=== PATIENT | male | born 1950 | race Caucasian/White ===

== ENCOUNTER 2016-12-21 19:22 | Inpatient (IN) | payer MEDICARE ==
[~2016-12-21] VITALS: Ht 190.5 cm; Wt 97.0 kg
[~2016-12-21 19:22] MED LIST: ALLEGRA 180MG180 MG PO; ALPRAZOLAM0.5 MG PO; AMBIEN 10MG10 MG PO; AMBIEN CR12.5 MG PO; AMBIEN5 MG PO; AMOXICILLIN 8751 TAB PO; ASPIRIN 32325 MG/TAB PO; ASPIRIN E.C.325 MG PO; ATIVAN 0.50.5 MG/TAB PO; BUSPAR 30MG30 MG/TAB PO; BUSPAR DIVIDOSE15 MG PO; BUSPAR10 MG PO; CEPHALEXIN500 M1 PO; CETIRIZINE; CIPRO 500MG TA500 MG PO; CLARITIN 1010 MG/TAB PO; DIAZEPAM10 MG PO; DOCUSATE100 MG PO; FISH OIL1 IU PO; FLECAINIDE ACE100 MG PO; FLOMAX; FLUOXETINE; LIOTHYRONINE S25 MCG PO; LOMOTIL 0.025 M1 TAB PO; LOVAZA1 GM PO; METHYLPHENIDATE PO; MIRALAX17 GM/DOSE PO; MIRTAZAPINE7.5 MG PO; MULTIPLE VITAMI1 CAP PO; PERCOCET 325 MG1 TA2 PO; POLYETHYLE17 GM/DOSE PO; PRISTIQ 50 MG T50 MG PO; PRISTIQ50 M1 PO; PROSCAR; SEROQUEL50 MG PO; SINGULAIR; TAMBOCOR 1100 MG/TAB PO; TYLENOL 325MG325 MG PO; UNABLE; VESICARE10 MG PO; VESICARE5 MG PO; VIIBRYD40 MG PO; VYTORIN; VYTORIN 10 MG-21 TAB PO; XANAX 0.5MG0.5 MG PO; ZANTAC 150 EFF150 M1 PO; ZANTAC 150MG T150 MG PO; ZYPREXA 5MG5 MG PO; ZYPREXA10 MG PO; ZYPREXA2.5 MG PO; ZYRTEC 10MG10 MG PO; [UNRECOGNIZED DRUG - OTHER]; [UNRECOGNIZED DRUG - OTHER] PO; citrucel
[2016-12-21 20:21] LABS: ADJUSTED CALCIUM 8.3 mg/dL (8.4-10.2); ALBUMIN 4.1 gm/dL (3.5-5.0); BILIRUBIN,TOTAL 0.6 mg/dL (0.0-1.0); CALCIUM 8.4 mg/dL (8.4-10.2); CREATININE, serum 1.02 mg/dL (0.66-1.25); TOTAL PROTEIN 6.7 gm/dL (6.4-8.2)
[2016-12-21 20:27] LABS: BASO % 0.4 % (0.0-2.0); EOS # 0.2 (0.0-0.7); GRAN # 4.2 (1.4-6.5); GRAN % 52.4 % (42.2-75.2); HEMATOCRIT 42.8 % (42.0-52.0); HEMOGLOBIN 14.3 g/dl (13.5-18.0); LYMPH # 2.9 (1.2-3.4); LYMPH % 35.9 % (20.0-51.0); MEAN CELL VOLUME 89 fl (80.0-100.0); MEAN CORPUSCULAR HEMOGLOBIN 30 pg (27.0-31.0); MEAN CORPUSCULAR HGB CONC 33 g/dl (33.0-37.0); MEAN PLATELET VOLUME 8.7 fl (7.4-10.4); MONO # 0.7 (0.1-0.6); MONO % 8.9 % (1.7-9.3); PLATELET COUNT 184 K/mm3 (130-400); RED BLOOD COUNT 4.83 M/mm3 (4.20-5.60); REDCELL DISTRIBUTION WIDTH-CV 13.2 % (11.5-14.5)
[2016-12-21 20:36] LABS: INR 1.1 (0.8-3.0)
[2016-12-21 20:39] LABS: PARTIAL THROMBOPLASTIN TIME 27.4 SECONDS (26.0-37.0)
[2016-12-21 23:07] VITALS: BP 118/69; PULSE 75; TEMP 98.3
[2016-12-22] VITALS (11 sets, daily range): BP systolic 116–142; BP diastolic 58–84; PULSE 69–114; TEMP 97.3–98.8
[2016-12-22 00:30] LABS: MAGNESIUM 2.3 mg/dL (1.6-2.3)
[2016-12-22 08:28] LABS: CALCIUM 7.7 mg/dL (8.4-10.2); CREATININE, serum 0.82 mg/dL (0.66-1.25); POTASSIUM 3.6 mmol/L (3.4-5.0)
[2016-12-22] MEDS ORDERED: BELSOMRA10 MG PO (16:00)
[2016-12-22] MEDS ORDERED: ATARAX50 MG PO (16:04)
[2016-12-22] MEDS ORDERED: QUESTRAN4 GM/9 GM PO (16:05)
[2016-12-22 18:41] LABS: PH 5 (5-8); SQUAMOUS EPITHELIAL None Seen /hpf; URINE APPEARANCE Clear; URINE BACTERIA None Seen /hpf; URINE BILIRUBIN Negative (NEGATIVE); URINE BLOOD Negative (NEGATIVE); URINE COLOR Yellow; URINE GLUCOSE Negative (NEGATIVE); URINE KETONE Trace (NEGATIVE); URINE RBC 0-2 /hpf; URINE UROBILINOGEN Negative (NEGATIVE); URINE WBC 0-2 /hpf
[2016-12-22 18:48] LABS: AMPHETAMINE URINE NEGATIVE; BARBITURATES URINE NEGATIVE; BENZODIAZEPINES URINE POSITIVE; BUPRENORPHINE URINE NEGATIVE; METHADONE URINE NEGATIVE; OPIATES URINE NEGATIVE; OXYCODONE URINE NEGATIVE; PHENCYCLIDINE URINE NEGATIVE; PROPOXYPHENE URINE NEGATIVE; THC CANNABINOIDS URINE NEGATIVE
[2016-12-23] VITALS (11 sets, daily range): BP systolic 111–141; BP diastolic 63–81; PULSE 51–79; TEMP 97.5–98.8
[2016-12-24 02:19] VITALS: BP 129/76; PULSE 72; TEMP 98.6
[2016-12-24 03:53] VITALS: BP 122/68; PULSE 50; TEMP 98.7
[2016-12-24 06:08] VITALS: BP 130/81; PULSE 54; TEMP 98.5
[2016-12-24 08:50] VITALS: BP 128/81; PULSE 74; TEMP 98.2
[2016-12-24 10:55] VITALS: BP 124/81; PULSE 63; TEMP 98.3
[2016-12-24 13:37] VITALS: BP 121/66; PULSE 80; TEMP 97.6
== END 2016-12-24 15:07 | disposition home or self-care (01) | DRG 897 ==
LOC: COL.ER 19:22 → MEDICAL 22:06
PROVIDERS: Emergency Medicine; Nurse Practitioner Family
DX: F10.229 Alcohol dependence with intoxication, unspecified (principal); G10 Huntington's disease; E87.2 Acidosis; F10.239 Alcohol dependence with withdrawal, unspecified; Y90.8 Blood alcohol level of 240 mg/100 ml or more; R53.81 Other malaise; R53.1 Weakness; I48.0 Paroxysmal atrial fibrillation; Z91.81 History of falling
CPT/HCPCS: OP; 90791-AI; 99223-AI; 99232-AI; G0378; G8978-GP; G8979-GP; J2060; J3411; J3475; J7030

== ENCOUNTER → 2017-01-02 | Outpatient (CLI) | payer MEDICARE ==
[~2017-01-02] MED LIST changes: +ATARAX50 MG PO; +BELSOMRA10 MG PO; +QUESTRAN4 GM/9 GM PO
== END ==
LOC: BHSO 11:00
DX: F10.20 Alcohol dependence, uncomplicated (principal)

== ENCOUNTER → 2017-01-31 | Outpatient (CLI) | payer MEDICARE | LOC: BHSO 10:15 | DX: F10.20 Alcohol dependence, uncomplicated (principal) ==

== ENCOUNTER → 2017-04-04 | Outpatient (CLI) | payer MEDICARE | LOC: BHSO 10:41 | DX: F33.42 Major depressive disorder, recurrent, in full remission (principal) ==

== ENCOUNTER → 2017-07-25 | Outpatient (CLI) | payer MEDICARE | LOC: BHSO 10:31 | DX: F41.1 Generalized anxiety disorder (principal) ==

== ENCOUNTER → 2018-04-10 | Outpatient (CLI) | payer MEDICARE | LOC: BHSO 11:26 | DX: F41.1 Generalized anxiety disorder (principal) | CPT/HCPCS: G0463 ==

== ENCOUNTER 2018-04-14 19:10 | Observation (INO) | payer MEDICARE ==
[2005-05-06 03:53] VITALS: BP 117/81
[2018-04-14 19:45] LABS: BASO % 0.3 % (0.0-2.0); EOS # 0.3 (0.0-0.7); EOS % 2.7 % (0-4.0); GRAN # 6.1 (1.4-6.5); GRAN % 65.9 % (42.2-75.2); HEMATOCRIT 43.2 % (42.0-52.0); HEMOGLOBIN 14.5 g/dl (13.5-18.0); LYMPH # 2.3 (1.2-3.4); LYMPH % 24.7 % (20.0-51.0); MEAN CELL VOLUME 90 fl (80.0-100.0); MEAN CORPUSCULAR HEMOGLOBIN 30 pg (27.0-31.0); MEAN CORPUSCULAR HGB CONC 34 g/dl (33.0-37.0); MEAN PLATELET VOLUME 9.1 fl (7.4-10.4); MONO # 0.6 (0.1-0.6); MONO % 6.3 % (1.7-9.3); PLATELET COUNT 158 K/mm3 (130-400); RED BLOOD COUNT 4.78 M/mm3 (4.20-5.60); REDCELL DISTRIBUTION WIDTH-CV 13.5 % (11.5-14.5)
[2018-04-14 19:55] LABS: ALANINE AMINOTRANSFERASE 31 U/L (21-72); ALCOHOL(ethanol),MEDICAL 254 mg/dL; ALKALINE PHOSPHATASE 76 U/L (50-136); ANION GAP 11 mmol/L (7-16); AST,SGOT 22 U/L (15-37); BILIRUBIN,TOTAL 0.2 mg/dL (0.0-1.0); BLOOD UREA NITROGEN 10 mg/dL (9-20); CALCIUM 8.8 mg/dL (8.4-10.2); CARBON DIOXIDE 25 mmol/L (22-30); CHLORIDE 108 mmol/L (98-107); GLUCOSE 92 mg/dL (74-106); POTASSIUM 3.6 mmol/L (3.4-5.0); SODIUM 144 mmol/L (137-145)
[2018-04-14 20:08] LABS: TROPONIN-I < 0.012 ng/mL (0.000-0.034)
[2018-04-14] MEDS ORDERED: MELATONIN1 MG PO (20:08)
[2018-04-14] MEDS ORDERED: MYRBETR25MG PO (20:09)
[2018-04-14] MEDS ORDERED: TOPAMAX50 MG PO (20:09)
[2018-04-15] VITALS (7 sets, daily range): BP systolic 108–135; BP diastolic 61–72; PULSE 70–99; TEMP 97.9–99.9
[2018-04-15 03:11] LABS: PROTHROMBIN TIME 10.9 SECONDS (9.7-12.8)
[2018-04-15 03:14] LABS: PARTIAL THROMBOPLASTIN TIME 33.6 SECONDS (26.0-37.0)
[2018-04-15 03:38] LABS: COLLECTION METHOD CLEAN CATCH
[2018-04-15 03:56] LABS: PH 7 (5-8); SQUAMOUS EPITHELIAL None Seen /hpf; URINE APPEARANCE Clear; URINE BACTERIA None Seen /hpf; URINE BILIRUBIN Negative (NEGATIVE); URINE BLOOD Negative (NEGATIVE); URINE COLOR Colorless; URINE GLUCOSE Negative (NEGATIVE); URINE KETONE Negative (NEGATIVE); URINE LEUKOCYTE ESTERASE Negative (NEGATIVE); URINE NITRATE Negative (NEGATIVE); URINE PROTEIN(semi-quant) Negative (NEGATIVE); URINE RBC 0-2 /hpf; URINE UROBILINOGEN Negative (NEGATIVE)
[2018-04-15 04:06] LABS: TRICYCLIC ANTIDEPRESS URINE NEGATIVE
[2018-04-15 07:03] LABS: BASO % 0.3 % (0.0-2.0); EOS # 0.1 (0.0-0.7); EOS % 0.6 % (0-4.0); GRAN # 9.8 (1.4-6.5); GRAN % 83.5 % (42.2-75.2); HEMATOCRIT 43.4 % (42.0-52.0); HEMOGLOBIN 13.9 g/dl (13.5-18.0); LYMPH # 1.1 (1.2-3.4); LYMPH % 9.4 % (20.0-51.0); MEAN CELL VOLUME 92 fl (80.0-100.0); MEAN CORPUSCULAR HEMOGLOBIN 30 pg (27.0-31.0); MEAN CORPUSCULAR HGB CONC 32 g/dl (33.0-37.0); MEAN PLATELET VOLUME 9.2 fl (7.4-10.4); MONO # 0.7 (0.1-0.6); MONO % 5.9 % (1.7-9.3); PLATELET COUNT 161 K/mm3 (130-400); REDCELL DISTRIBUTION WIDTH-CV 13.8 % (11.5-14.5)
[2018-04-15 07:10] LABS: CREATININE, serum 0.74 mg/dL (0.66-1.25); POTASSIUM 3.5 mmol/L (3.4-5.0)
[2018-04-16 04:00] VITALS: BP 102/57; PULSE 54; TEMP 97.8
[2018-04-16 06:34] VITALS: BP 112/72; PULSE 60; TEMP 98
[2018-04-16 07:21] VITALS: BP 114/68; PULSE 63; TEMP 98.4
[2018-04-16] MEDS ORDERED: PRISTIQ 50 MG T50 MG PO ×2 (09:26→09:58)
[2018-04-16] MEDS ORDERED: ZYPREXA15 MG PO (09:27)
[2018-04-16] MEDS ORDERED: THIAMINE 1100 MG/TAB PO (09:28)
[2018-04-16] MEDS ORDERED: FOLIC ACID 11 MG/TA1 PO (09:28)
[2018-04-16] MEDS ORDERED: MULTI VITAMINS1 TAB PO (09:29)
== END 2018-04-16 13:52 | disposition home or self-care (01) ==
LOC: COL.ER 19:10 → MEDICAL 04-15 01:45
PROVIDERS: Emergency Medicine; Internal Medicine; Nurse Practitioner Family
DX: R53.1 Weakness (principal); R41.81 Age-related cognitive decline; F10.129 Alcohol abuse with intoxication, unspecified; S01.01XA Laceration without foreign body of scalp, initial encounter; R33.9 Retention of urine, unspecified; R19.7 Diarrhea, unspecified; G25.5 Other chorea; I48.0 Paroxysmal atrial fibrillation; F32.9 Major depressive disorder, single episode, unspecified
CPT/HCPCS: G0378; G8978-GP; G8979-GP; G8987-GO; G8988-GO; J3411; J7030

== ENCOUNTER 2018-06-07 15:43 | Emergency (ER) | payer MEDICARE ==
[2005-05-06 03:53] VITALS: BP 117/81
[~2018-06-07] VITALS: Ht 185.4 cm; Wt 90.9 kg
[~2018-06-07 15:43] MED LIST changes: +FOLIC ACID 11 MG/TA1 PO; +MELATONIN1 MG PO; +MULTI VITAMINS1 TAB PO; +MYRBETR25MG PO; +THIAMINE 1100 MG/TAB PO; +TOPAMAX50 MG PO; +ZYPREXA15 MG PO
[2018-06-07 15:46] VITALS: TEMP 97.4
[2018-06-07] MEDS ORDERED: NORCO 325 MG-51 TAB PO (17:25)
[2018-06-07 18:10] VITALS: BP 130/89; PULSE 90
== END 2018-06-07 17:40 | disposition home or self-care (01) ==
LOC: COL.ER 15:43
DX: S42.252A Displaced fracture of greater tuberosity of left humerus, initial encounter for closed fracture (principal); S02.2XXA Fracture of nasal bones, initial encounter for closed fracture; G10 Huntington's disease; W19.XXXA Unspecified fall, initial encounter
CPT/HCPCS: J2060; J3010

== ENCOUNTER 2018-06-10 10:56 | Inpatient (IN) | payer MEDICARE ==
[~2018-06-10] VITALS: Ht 188 cm; Wt 89.5 kg
[~2018-06-10 10:56] MED LIST changes: +NORCO 325 MG-51 TAB PO
[2018-06-10 11:26] LABS: HEMATOCRIT 37.7 % (42.0-52.0); HEMOGLOBIN 12.3 g/dl (13.5-18.0); MEAN CELL VOLUME 91 fl (80.0-100.0); MEAN CORPUSCULAR HEMOGLOBIN 30 pg (27.0-31.0); MEAN CORPUSCULAR HGB CONC 33 g/dl (33.0-37.0); MEAN PLATELET VOLUME 9.6 fl (7.4-10.4); PLATELET COUNT 126 K/mm3 (130-400); RED BLOOD COUNT 4.16 M/mm3 (4.20-5.60); REDCELL DISTRIBUTION WIDTH-CV 12.9 % (11.5-14.5)
[2018-06-10 11:47] LABS: BAND 30 % (0-10); LYMPHOCYTE 6 % (20.0-51.0); METAMYELOCYTE 1 % (0-0); NEUTROPHILS 62 % (42.0-75.2); PLATELET ESTIMATE DECREASED (NORMAL)
[2018-06-10 11:48] LABS: TOXIC GRANULATION PRESENT
[2018-06-10 12:15] LABS: ALBUMIN 3.4 gm/dL (3.5-5.0); BILIRUBIN,TOTAL 0.9 mg/dL (0.0-1.0); CALCIUM 8.6 mg/dL (8.4-10.2); CREATININE, serum 0.9 mg/dL (0.66-1.25); POTASSIUM 3.4 mmol/L (3.4-5.0); TOTAL PROTEIN 6.6 gm/dL (6.4-8.2)
[2018-06-10 13:51] LABS: COLLECTION METHOD CLEAN CATCH
[2018-06-10 14:07] LABS: PH 7 (5-8); SQUAMOUS EPITHELIAL None Seen /hpf; URINE APPEARANCE Hazy; URINE BACTERIA None Seen /hpf; URINE BILIRUBIN Negative (NEGATIVE); URINE BLOOD Negative (NEGATIVE); URINE COLOR Yellow; URINE GLUCOSE Negative (NEGATIVE); URINE KETONE Negative (NEGATIVE); URINE LEUKOCYTE ESTERASE Negative (NEGATIVE); URINE NITRATE Negative (NEGATIVE); URINE PROTEIN(semi-quant) 2+ (NEGATIVE); URINE RBC 0-2 /hpf; URINE UROBILINOGEN Negative (NEGATIVE); URINE WBC 0-2 /hpf
[2018-06-10 15:42] VITALS: BP 115/62; PULSE 104; TEMP 101.6
[2018-06-10 18:15] VITALS: TEMP 99.1
[2018-06-10 20:05] VITALS: BP 108/59; PULSE 89; TEMP 99.6
[2018-06-11] VITALS (8 sets, daily range): BP systolic 88–148; BP diastolic 48–87; PULSE 83–104; TEMP 97.9–99.7
[2018-06-11 07:00] LABS: BASO % 0.3 % (0.0-2.0); EOS # 0.1 (0.0-0.7); EOS % 1.1 % (0-4.0); GRAN # 6.5 (1.4-6.5); GRAN % 87.2 % (42.2-75.2); HEMOGLOBIN 10.7 g/dl (13.5-18.0); LYMPH # 0.4 (1.2-3.4); LYMPH % 5.8 % (20.0-51.0); MEAN CELL VOLUME 90 fl (80.0-100.0); MEAN CORPUSCULAR HEMOGLOBIN 30 pg (27.0-31.0); MEAN CORPUSCULAR HGB CONC 33 g/dl (33.0-37.0); MEAN PLATELET VOLUME 9.4 fl (7.4-10.4); MONO # 0.4 (0.1-0.6); MONO % 5.3 % (1.7-9.3); PLATELET COUNT 129 K/mm3 (130-400); RED BLOOD COUNT 3.58 M/mm3 (4.20-5.60); REDCELL DISTRIBUTION WIDTH-CV 12.8 % (11.5-14.5)
[2018-06-11 07:01] LABS: HEMATOCRIT 32.3 % (42.0-52.0)
[2018-06-11 07:15] LABS: ALBUMIN 2.7 gm/dL (3.5-5.0); BILIRUBIN,TOTAL 0.7 mg/dL (0.0-1.0); CALCIUM 7.8 mg/dL (8.4-10.2); CREATININE, serum 0.75 mg/dL (0.66-1.25); TOTAL PROTEIN 5.7 gm/dL (6.4-8.2)
[2018-06-11 07:21] LABS: POTASSIUM 2.8 mmol/L (3.4-5.0)
[2018-06-12] VITALS (8 sets, daily range): BP systolic 83–111; BP diastolic 48–69; PULSE 77–100; TEMP 97.9–98.8
[2018-06-12 07:26] LABS: BASO % 0.1 % (0.0-2.0); EOS # 0.2 (0.0-0.7); EOS % 2.4 % (0-4.0); GRAN # 5.7 (1.4-6.5); GRAN % 79.9 % (42.2-75.2); LYMPH # 0.7 (1.2-3.4); LYMPH % 9.6 % (20.0-51.0); MEAN CELL VOLUME 91 fl (80.0-100.0); MEAN CORPUSCULAR HGB CONC 33 g/dl (33.0-37.0); MEAN PLATELET VOLUME 9.4 fl (7.4-10.4); MONO # 0.5 (0.1-0.6); PLATELET COUNT 140 K/mm3 (130-400); RED BLOOD COUNT 3.32 M/mm3 (4.20-5.60)
[2018-06-12 07:27] LABS: HEMATOCRIT 30.3 % (42.0-52.0); HEMOGLOBIN 9.9 g/dl (13.5-18.0); MEAN CORPUSCULAR HEMOGLOBIN 30 pg (27.0-31.0)
[2018-06-12 07:34] LABS: CALCIUM 7.6 mg/dL (8.4-10.2); CREATININE, serum 0.71 mg/dL (0.66-1.25)
[2018-06-13 03:49] VITALS: BP 107/61; PULSE 84; TEMP 98.6
[2018-06-13 07:16] VITALS: BP 127/47; PULSE 85; TEMP 98.6
[2018-06-13 08:53] LABS: BASO % 0.2 % (0.0-2.0); EOS # 0.3 (0.0-0.7); EOS % 3.6 % (0-4.0); GRAN # 6.3 (1.4-6.5); GRAN % 78.3 % (42.2-75.2); HEMATOCRIT 34.6 % (42.0-52.0); HEMOGLOBIN 11.1 g/dl (13.5-18.0); LYMPH # 0.9 (1.2-3.4); MEAN CELL VOLUME 92 fl (80.0-100.0); MEAN CORPUSCULAR HEMOGLOBIN 29 pg (27.0-31.0); MEAN CORPUSCULAR HGB CONC 32 g/dl (33.0-37.0); MEAN PLATELET VOLUME 10.3 fl (7.4-10.4); MONO # 0.5 (0.1-0.6); MONO % 6.2 % (1.7-9.3); PLATELET COUNT 142 K/mm3 (130-400); RED BLOOD COUNT 3.77 M/mm3 (4.20-5.60); REDCELL DISTRIBUTION WIDTH-CV 13.2 % (11.5-14.5)
[2018-06-13 09:04] LABS: CREATININE, serum 0.58 mg/dL (0.66-1.25); POTASSIUM 4.1 mmol/L (3.4-5.0)
[2018-06-13 11:53] VITALS: BP 126/74; PULSE 92; TEMP 97.7
[2018-06-13 13:14] LABS: COLLECTION METHOD CLEAN CATCH
[2018-06-13 14:09] LABS: MUCOUS Present /lpf; PH 7 (5-8); SQUAMOUS EPITHELIAL None Seen /hpf; URINE APPEARANCE Clear; URINE BACTERIA None Seen /hpf; URINE BILIRUBIN Negative (NEGATIVE); URINE BLOOD Negative (NEGATIVE); URINE COLOR Yellow; URINE GLUCOSE Negative (NEGATIVE); URINE KETONE Negative (NEGATIVE); URINE LEUKOCYTE ESTERASE Negative (NEGATIVE); URINE NITRATE Negative (NEGATIVE); URINE PROTEIN(semi-quant) Negative (NEGATIVE); URINE RBC 0-2 /hpf; URINE UROBILINOGEN Negative (NEGATIVE)
[2018-06-13 15:12] VITALS: BP 121/73; PULSE 88; TEMP 97.7
[2018-06-13 20:22] VITALS: BP 123/75; PULSE 84; TEMP 97.9
[2018-06-14] VITALS (161 sets, daily range): BP systolic 85–130; BP diastolic 61–84; PULSE 52–122; TEMP 97.8–99.7; O2SAT 76–100
[2018-06-14 09:02] LABS: HEMOGLOBIN 11.8 g/dl (13.5-18.0); MEAN CORPUSCULAR HEMOGLOBIN 30 pg (27.0-31.0); MEAN CORPUSCULAR HGB CONC 34 g/dl (33.0-37.0); MEAN PLATELET VOLUME 8.9 fl (7.4-10.4); PLATELET COUNT 235 K/mm3 (130-400); RED BLOOD COUNT 3.98 M/mm3 (4.20-5.60); REDCELL DISTRIBUTION WIDTH-CV 13.1 % (11.5-14.5)
[2018-06-14 09:03] LABS: HEMATOCRIT 34.7 % (42.0-52.0); MEAN CELL VOLUME 87 fl (80.0-100.0)
[2018-06-14 09:10] LABS: CALCIUM 8.2 mg/dL (8.4-10.2); CREATININE, serum 0.55 mg/dL (0.66-1.25); POTASSIUM 3.6 mmol/L (3.4-5.0)
[2018-06-14 09:29] LABS: BAND 8 % (0-10); LYMPHOCYTE 12 % (20.0-51.0); NEUTROPHILS 76 % (42.0-75.2); PLATELET ESTIMATE NORMAL (NORMAL)
[2018-06-15] VITALS (985 sets, daily range): BP systolic 89–105; BP diastolic 59–70; PULSE 82–121; TEMP 97–99.7; O2SAT 71–100
[2018-06-15 05:21] LABS: HEMOGLOBIN 11.8 g/dl (13.5-18.0); MEAN CELL VOLUME 91 fl (80.0-100.0); MEAN CORPUSCULAR HEMOGLOBIN 29 pg (27.0-31.0); MEAN CORPUSCULAR HGB CONC 32 g/dl (33.0-37.0); MEAN PLATELET VOLUME 8.9 fl (7.4-10.4); PLATELET COUNT 311 K/mm3 (130-400); RED BLOOD COUNT 4.01 M/mm3 (4.20-5.60); REDCELL DISTRIBUTION WIDTH-CV 13.4 % (11.5-14.5)
[2018-06-15 05:23] LABS: HEMATOCRIT 36.5 % (42.0-52.0)
[2018-06-15 05:32] LABS: CALCIUM 7.4 mg/dL (8.4-10.2); CREATININE, serum 0.68 mg/dL (0.66-1.25); POTASSIUM 3.8 mmol/L (3.4-5.0)
[2018-06-15 06:26] LABS: BAND 43 % (0-10); LYMPHOCYTE 5 % (20.0-51.0); NEUTROPHILS 52 % (42.0-75.2)
[2018-06-15 06:27] LABS: HYPOCHROMIA 1+; PLATELET ESTIMATE NORMAL (NORMAL); POLYCHROMASIA 1+
[2018-06-16] VITALS (1104 sets, daily range): BP systolic 89–102; BP diastolic 55–67; PULSE 73–107; TEMP 97.3–98.5; O2SAT 32–100
[2018-06-16 06:39] LABS: HEMOGLOBIN 10.1 g/dl (13.5-18.0); MEAN CELL VOLUME 89 fl (80.0-100.0); MEAN CORPUSCULAR HEMOGLOBIN 30 pg (27.0-31.0); MEAN CORPUSCULAR HGB CONC 33 g/dl (33.0-37.0); MEAN PLATELET VOLUME 8.5 fl (7.4-10.4); PLATELET COUNT 290 K/mm3 (130-400); RED BLOOD COUNT 3.38 M/mm3 (4.20-5.60); REDCELL DISTRIBUTION WIDTH-CV 13.2 % (11.5-14.5)
[2018-06-16 06:42] LABS: HEMATOCRIT 30.2 % (42.0-52.0)
[2018-06-16 06:43] LABS: INR 1.8 (0.8-3.0); PROTHROMBIN TIME 20.1 SECONDS (9.7-12.8)
[2018-06-16 06:46] LABS: CALCIUM 7.2 mg/dL (8.4-10.2); CREATININE, serum 0.82 mg/dL (0.66-1.25); MAGNESIUM 1.8 mg/dL (1.6-2.3); POTASSIUM 3.1 mmol/L (3.4-5.0)
[2018-06-16 09:20] LABS: BAND 30 % (0-10); EOSINOPHIL 1 % (0-4); LYMPHOCYTE 3 % (20.0-51.0); NEUTROPHILS 64 % (42.0-75.2); PLATELET ESTIMATE NORMAL (NORMAL)
[2018-06-17] VITALS (377 sets, daily range): BP systolic 93–100; BP diastolic 52–79; PULSE 61–71; TEMP 97.7–98.7; O2SAT 78–100
[2018-06-17 06:48] LABS: MEAN CELL VOLUME 88 fl (80.0-100.0); MEAN CORPUSCULAR HGB CONC 35 g/dl (33.0-37.0); PLATELET COUNT 320 K/mm3 (130-400); RED BLOOD COUNT 3.23 M/mm3 (4.20-5.60); REDCELL DISTRIBUTION WIDTH-CV 13.3 % (11.5-14.5)
[2018-06-17 06:53] LABS: INR 1.4 (0.8-3.0); PROTHROMBIN TIME 16.2 SECONDS (9.7-12.8)
[2018-06-17 07:24] LABS: HEMATOCRIT 28.4 % (42.0-52.0); HEMOGLOBIN 9.8 g/dl (13.5-18.0); MEAN CORPUSCULAR HEMOGLOBIN 30 pg (27.0-31.0)
[2018-06-17 07:31] LABS: BAND 16 % (0-10); EOSINOPHIL 2 % (0-4); LYMPHOCYTE 4 % (20.0-51.0); NEUTROPHILS 77 % (42.0-75.2); PLATELET ESTIMATE NORMAL (NORMAL)
[2018-06-17 10:37] LABS: CALCIUM 7.5 mg/dL (8.4-10.2); CREATININE, serum 0.68 mg/dL (0.66-1.25); MAGNESIUM 2.1 mg/dL (1.6-2.3)
[2018-06-17 10:39] LABS: POTASSIUM 2.9 mmol/L (3.4-5.0)
[2018-06-18] VITALS (7 sets, daily range): BP systolic 98–124; BP diastolic 46–65; PULSE 64–80; TEMP 97.6–98.8
[2018-06-18 07:18] LABS: INR 1.4 (0.8-3.0); PROTHROMBIN TIME 15.7 SECONDS (9.7-12.8)
[2018-06-18 07:26] LABS: MEAN CELL VOLUME 89 fl (80.0-100.0); MEAN CORPUSCULAR HGB CONC 33 g/dl (33.0-37.0); MEAN PLATELET VOLUME 8.7 fl (7.4-10.4); PLATELET COUNT 402 K/mm3 (130-400); RED BLOOD COUNT 3.28 M/mm3 (4.20-5.60); REDCELL DISTRIBUTION WIDTH-CV 13.4 % (11.5-14.5)
[2018-06-18 07:28] LABS: HEMATOCRIT 29.2 % (42.0-52.0); HEMOGLOBIN 9.7 g/dl (13.5-18.0); MEAN CORPUSCULAR HEMOGLOBIN 30 pg (27.0-31.0)
[2018-06-18 07:31] LABS: CALCIUM 7.6 mg/dL (8.4-10.2); CREATININE, serum 0.64 mg/dL (0.66-1.25); MAGNESIUM 2.2 mg/dL (1.6-2.3); POTASSIUM 3.5 mmol/L (3.4-5.0)
[2018-06-18 07:40] LABS: BAND 12 % (0-10); EOSINOPHIL 1 % (0-4); LYMPHOCYTE 4 % (20.0-51.0); NEUTROPHILS 80 % (42.0-75.2); PLATELET ESTIMATE INCREASED (NORMAL)
[2018-06-19 04:09] VITALS: BP 103/51; PULSE 74; TEMP 98.1
[2018-06-19 07:31] VITALS: BP 123/69; PULSE 74; TEMP 98.4
[2018-06-19 08:34] LABS: BASO % 0.3 % (0.0-2.0); EOS # 0.1 (0.0-0.7); EOS % 0.9 % (0-4.0); GRAN # 13.6 (1.4-6.5); GRAN % 85.7 % (42.2-75.2); HEMOGLOBIN 10.1 g/dl (13.5-18.0); LYMPH # 1.1 (1.2-3.4); LYMPH % 6.9 % (20.0-51.0); MEAN CELL VOLUME 90 fl (80.0-100.0); MEAN CORPUSCULAR HEMOGLOBIN 29 pg (27.0-31.0); MEAN CORPUSCULAR HGB CONC 33 g/dl (33.0-37.0); MEAN PLATELET VOLUME 8.6 fl (7.4-10.4); MONO # 0.8 (0.1-0.6); MONO % 4.8 % (1.7-9.3); PLATELET COUNT 438 K/mm3 (130-400); RED BLOOD COUNT 3.46 M/mm3 (4.20-5.60); REDCELL DISTRIBUTION WIDTH-CV 13.5 % (11.5-14.5)
[2018-06-19 08:38] LABS: INR 1.4 (0.8-3.0); PROTHROMBIN TIME 15.7 SECONDS (9.7-12.8)
[2018-06-19 08:48] LABS: CALCIUM 7.7 mg/dL (8.4-10.2); CREATININE, serum 0.66 mg/dL (0.66-1.25); MAGNESIUM 2.1 mg/dL (1.6-2.3); POTASSIUM 3.6 mmol/L (3.4-5.0)
[2018-06-19 11:19] VITALS: BP 98/55; PULSE 69; TEMP 97.5
[2018-06-19 15:25] VITALS: BP 115/62; PULSE 75; TEMP 98.3
[2018-06-19 19:41] VITALS: BP 106/63; PULSE 75; TEMP 98.4
[2018-06-20 00:15] VITALS: BP 112/63; PULSE 75; TEMP 98.5
[2018-06-20 06:44] LABS: BASO # 0.1 (0.0-0.2); BASO % 0.4 % (0.0-2.0); EOS # 0.2 (0.0-0.7); EOS % 1.7 % (0-4.0); GRAN # 11.1 (1.4-6.5); GRAN % 82.6 % (42.2-75.2); LYMPH # 1.2 (1.2-3.4); LYMPH % 9.2 % (20.0-51.0); MEAN CELL VOLUME 90 fl (80.0-100.0); MEAN CORPUSCULAR HGB CONC 32 g/dl (33.0-37.0); MEAN PLATELET VOLUME 8.5 fl (7.4-10.4); MONO # 0.7 (0.1-0.6); MONO % 4.8 % (1.7-9.3); PLATELET COUNT 428 K/mm3 (130-400); RED BLOOD COUNT 3.32 M/mm3 (4.20-5.60); REDCELL DISTRIBUTION WIDTH-CV 13.4 % (11.5-14.5)
[2018-06-20 06:48] LABS: CALCIUM 7.7 mg/dL (8.4-10.2); CREATININE, serum 0.61 mg/dL (0.66-1.25); MAGNESIUM 2.1 mg/dL (1.6-2.3); POTASSIUM 3.5 mmol/L (3.4-5.0)
[2018-06-20 06:54] LABS: INR 1.4 (0.8-3.0); PROTHROMBIN TIME 15.4 SECONDS (9.7-12.8)
[2018-06-20 06:56] LABS: HEMATOCRIT 29.7 % (42.0-52.0); HEMOGLOBIN 9.6 g/dl (13.5-18.0); MEAN CORPUSCULAR HEMOGLOBIN 29 pg (27.0-31.0)
[2018-06-20 07:57] VITALS: BP 96/58; PULSE 72; TEMP 97.8
[2018-06-20 11:29] VITALS: BP 97/55; PULSE 78; TEMP 97.9
[2018-06-20] MEDS ORDERED: FLAGYL500 MG PO (14:24)
[2018-06-20] MEDS ORDERED: ZYPREXA 5MG5 MG PO (14:25)
[2018-06-20] MEDS ORDERED: BETAPACE 80MG80 MG PO (14:25)
[2018-06-20] MEDS ORDERED: LEADER CLE17 GM/Dose PO (14:26)
[2018-06-20] MEDS ORDERED: DULCOLAX STOOL100 MG PO (14:26)
[2018-06-20] MEDS ORDERED: CIPRO750 MG PO (14:27)
== END 2018-06-20 17:03 | DRG 853 ==
LOC: COL.ER 10:56 → ICU 14:21 → MEDICAL 14:21 → EDBEDREQ 14:24 → MEDICAL 06-11 11:49 → ICU 06-14 20:04 → MEDICAL 06-17 08:13
PROVIDERS: Hospitalist; Nurse Practitioner; Nurse Practitioner Family; Nurse Practitioner Primary Care; Physician Assistant; Surgery
PROC: 0JH602Z Insertion of Monitoring Device into Chest Subcutaneous Tissue and Fascia, Open Approach (ICD-10-PCS; 2018-06-12)
PROC: 5A2204Z Restoration of Cardiac Rhythm, Single (ICD-10-PCS; 2018-06-12)
PROC: 0WJJ4ZZ Inspection of Pelvic Cavity, Percutaneous Endoscopic Approach (ICD-10-PCS; 2018-06-14)
PROC: 0YQ60ZZ Repair Left Inguinal Region, Open Approach (ICD-10-PCS; principal; 2018-06-14 16:00)
PROC: 0YJ64ZZ Inspection of Left Inguinal Region, Percutaneous Endoscopic Approach (ICD-10-PCS; 2018-06-14 16:00)
PROC: 0VTB0ZZ Resection of Left Testis, Open Approach (ICD-10-PCS; 2018-06-14 16:00)
DX: A41.9 Sepsis, unspecified organism (principal); J18.9 Pneumonia, unspecified organism; E43 Unspecified severe protein-calorie malnutrition; J96.01 Acute respiratory failure with hypoxia; E87.1 Hypo-osmolality and hyponatremia; Z66 Do not resuscitate; G10 Huntington's disease; K91.2 Postsurgical malabsorption, not elsewhere classified; K56.7 Ileus, unspecified; K40.31 Unilateral inguinal hernia, with obstruction, without gangrene, recurrent; Z23 Encounter for immunization; E87.6 Hypokalemia; I48.0 Paroxysmal atrial fibrillation; Z87.891 Personal history of nicotine dependence; G62.1 Alcoholic polyneuropathy; D64.9 Anemia, unspecified; N49.2 Inflammatory disorders of scrotum; B96.1 Klebsiella pneumoniae [K. pneumoniae] as the cause of diseases classified elsewhere; Z93.2 Ileostomy status
CPT/HCPCS: 99223-AI; 99232-AI; 99233-AI; 99239; A4314; C1764; G9654; J0456; J1170; J1630; J1644; J1650; J2060; J2543; J2704; J3010; J3370; J3480; J7030; J7040; J7050

== ENCOUNTER → 2018-06-25 | Outpatient (REF) ==
[~2018-06-25] MED LIST changes: +BETAPACE 80MG80 MG PO; +CIPRO750 MG PO; +DULCOLAX STOOL100 MG PO; +FLAGYL500 MG PO; +LEADER CLE17 GM/Dose PO
[2018-06-25 16:27] LABS: BASO # 0.1 (0.0-0.2); BASO % 0.4 % (0.0-2.0); EOS # 0.3 (0.0-0.7); EOS % 2.9 % (0-4.0); GRAN # 8.7 (1.4-6.5); GRAN % 76.7 % (42.2-75.2); HEMOGLOBIN 10.7 g/dl (13.5-18.0); LYMPH # 1.5 (1.2-3.4); MEAN CELL VOLUME 91 fl (80.0-100.0); MEAN CORPUSCULAR HEMOGLOBIN 29 pg (27.0-31.0); MEAN CORPUSCULAR HGB CONC 32 g/dl (33.0-37.0); MEAN PLATELET VOLUME 8.3 fl (7.4-10.4); MONO # 0.7 (0.1-0.6); MONO % 5.9 % (1.7-9.3); PLATELET COUNT 419 K/mm3 (130-400); RED BLOOD COUNT 3.71 M/mm3 (4.20-5.60); REDCELL DISTRIBUTION WIDTH-CV 13.9 % (11.5-14.5)
[2018-06-25 16:30] LABS: HEMATOCRIT 33.6 % (42.0-52.0)
[2018-06-25 19:26] LABS: CALCIUM 7.9 mg/dL (8.4-10.2); CREATININE, serum 0.62 mg/dL (0.66-1.25); POTASSIUM 4.2 mmol/L (3.4-5.0)
== END ==
LOC: ZCOL.LAB 16:19
PROVIDERS: Internal Medicine
DX: G10 Huntington's disease (principal)

== ENCOUNTER → 2018-07-09 | Outpatient (CLI) | payer MEDICARE ==
[2018-07-09 14:27] LABS: BASO # 0.1 (0.0-0.2); BASO % 0.6 % (0.0-2.0); EOS # 0.4 (0.0-0.7); EOS % 5.4 % (0-4.0); GRAN # 4.5 (1.4-6.5); GRAN % 56.4 % (42.2-75.2); HEMATOCRIT 40.8 % (42.0-52.0); HEMOGLOBIN 13.4 g/dl (13.5-18.0); LYMPH % 25.1 % (20.0-51.0); MEAN CELL VOLUME 85 fl (80.0-100.0); MEAN CORPUSCULAR HEMOGLOBIN 28 pg (27.0-31.0); MEAN CORPUSCULAR HGB CONC 33 g/dl (33.0-37.0); MEAN PLATELET VOLUME 8.5 fl (7.4-10.4); MONO # 0.9 (0.1-0.6); MONO % 10.9 % (1.7-9.3); PLATELET COUNT 332 K/mm3 (130-400); RED BLOOD COUNT 4.79 M/mm3 (4.20-5.60); REDCELL DISTRIBUTION WIDTH-CV 14.6 % (11.5-14.5)
[2018-07-09 14:42] LABS: ALBUMIN 3.5 gm/dL (3.5-5.0); BILIRUBIN,TOTAL 0.3 mg/dL (0.0-1.0); CREATININE, serum 0.76 mg/dL (0.66-1.25); POTASSIUM 4.1 mmol/L (3.4-5.0); TOTAL PROTEIN 7.4 gm/dL (6.4-8.2)
== END ==
LOC: COL.LAB 13:56
PROVIDERS: Internal Medicine
DX: G10 Huntington's disease (principal)

== ENCOUNTER → 2018-10-09 | Outpatient (CLI) | payer MEDICARE | LOC: BHSO 11:44 | DX: F06.32 Mood disorder due to known physiological condition with major depressive-like episode (principal) | CPT/HCPCS: G0463 ==

== ENCOUNTER → 2019-04-04 | Outpatient (CLI) | payer MEDICARE | LOC: BHSO 11:30 | DX: F06.32 Mood disorder due to known physiological condition with major depressive-like episode (principal) | CPT/HCPCS: G0463 ==

== ENCOUNTER → 2019-10-02 | Outpatient (CLI) | payer MEDICARE | LOC: BHSO 10:23 | DX: F06.32 Mood disorder due to known physiological condition with major depressive-like episode (principal) | CPT/HCPCS: G0463 ==

== ENCOUNTER 2020-03-17 04:15 | Emergency (ER) | payer MEDICARE ==
[2005-05-06 03:53] VITALS: BP 117/81
[~2020-03-17] VITALS: Ht 188 cm; Wt 90.9 kg
[2020-03-17 04:16] VITALS: BP 137/80; TEMP 98
[2020-03-17 05:29] LABS: BASO % 0.6 % (0.0-2.0); EOS # 0.2 (0.0-0.7); GRAN % 56.4 % (42.2-75.2); HEMATOCRIT 40.7 % (42.0-52.0); HEMOGLOBIN 13.6 g/dl (13.5-18.0); LYMPH # 2.1 (1.2-3.4); LYMPH % 29.9 % (20.0-51.0); MEAN CELL VOLUME 92 fl (80.0-100.0); MEAN CORPUSCULAR HEMOGLOBIN 31 pg (27.0-31.0); MEAN CORPUSCULAR HGB CONC 33 g/dl (33.0-37.0); MEAN PLATELET VOLUME 9.8 fl (7.4-10.4); MONO # 0.7 (0.1-0.6); MONO % 9.8 % (1.7-9.3); RED BLOOD COUNT 4.42 M/mm3 (4.20-5.60); REDCELL DISTRIBUTION WIDTH-CV 13.3 % (11.5-14.5)
[2020-03-17 05:32] LABS: CALCIUM 9.1 mg/dL (8.4-10.2); CREATININE, serum 0.72 (0.66-1.25); POTASSIUM 4.2 mmol/L (3.4-5.0)
[2020-03-17 05:45] LABS: PLATELET COUNT 140 K/mm3 (130-400)
[2020-03-17 06:18] VITALS: PULSE 53
== END 2020-03-17 06:04 | disposition home or self-care (01) ==
LOC: COL.ER 04:15
PROVIDERS: Emergency Medicine
DX: S01.01XA Laceration without foreign body of scalp, initial encounter (principal); G10 Huntington's disease; F41.9 Anxiety disorder, unspecified; Z23 Encounter for immunization; W01.198A Fall on same level from slipping, tripping and stumbling with subsequent striking against other object, initial encounter; Y92.009 Unspecified place in unspecified non-institutional (private) residence as the place of occurrence of the external cause